=== PATIENT | male | born 1940 | race Caucasian/White ===

== ENCOUNTER 2019-09-20 09:32 | Inpatient (IN) ==
[2019-09-20] MEDS ORDERED: ASPIRIN PO ONE (09:51)
--- NOTE | 2019-09-20 10:08 | Diag Imaging Result Doc PS360 ---
EXAM: CHEST-2 VIEWS 09/20/2019 HISTORY: chest pain TECHNIQUE: PA and lateral chest COMMENT: There are ill-defined opacities in both lung bases which are worse than on 09/08/2019. There is mild cardiomegaly. IMPRESSION: Bibasilar pneumonia versus pulmonary edema. Electronically signed by Joo Walton 09/20/2019 10:06 AM
--- NOTE | 2019-09-20 10:24 | EKG Report ---
Test Performed on : 09/20/2019 09:41:12 AM Test Reason : chest pain Blood Pressure : / mmHG Vent. Rate : 069 BPM Atrial Rate : 069 BPM P-R Int : 162 ms QRS Dur : 096 ms QT Int : 448 ms P-R-T Axes : 047 014 055 degrees QTc Int : 480 ms Sinus rhythm. with premature supraventricular complexes. Nonspecific ST abnormality Prolonged QT Abnormal ECG When compared with ECG of 17-SEP-2019 12:21, (Unconfirmed) premature supraventricular complexes. are now present Unconfirmed Result
[2019-09-20 10:37] LABS: BASO# 0.01 X1000 (0.0-0.2); BASO% 0.1 % (0.0-0.8); EOS# 0.02 X1000 (0.0-0.7); EOS% 0.2 % (0.0-10.0); HEMATOCRIT 48.9 % (42.0-52.0); HEMOGLOBIN 16.5 g/dL (14.0-18.0); LYMPH# 0.95 X1000 (1.2-3.4); LYMPH% 8.9 % (20.5-51.1); MCH 31.8 PG (27-31); MCHC 33.7 g/dL (33-37); MCV 94.2 FL (81-99); MONO# 1.24 X1000 (0.11-0.59); MONO% 11.6 % (1.7-9.3); MPV 12.2 FL (7.4-10.4); NEUT# 8.47 X1000 (1.4-6.5); NEUT% 79.2 % (42.2-75.2); PLT 122 X1000 (130-400); RBC 5.19 XMIL (4.7-6.1); RDW 12.8 % (11.5-14.5); WBC 10.69 X1000 (4.8-10.8)
[2019-09-20 10:41] LABS: ALB/GLOB RATIO 1.7; ALBUMIN 4.1 g/dL (3.5-5.0); CALCIUM 9.5 mg/dL (8.8-10.2); CREATININE 1.2 mg/dL (0.7-1.2); POTASSIUM 4.5 mmol/L (3.5-5.1); TOTAL BILIRUBIN 4.58 mg/dL (0.20-1.00); TOTAL PROTEIN 6.5 g/dL (6.3-8.3)
[2019-09-20 11:06] LABS: INR 1.51; PROTIME 18.5 Seconds (11.0-16.0); PTT 33.6 Seconds (22.3-41.8)
[2019-09-20] MEDS ORDERED: LASIX IV ONE (12:58)
--- NOTE | 2019-09-20 12:59 | PROVIDER DOCUMENTATION ---
HPI-Chest Pain - General Chief Complaint: Chest Pain Stated Complaint: CP Time Seen by Provider: 09/20/19 12:40 Source: patient, family Allergies/Adverse Reactions: Patient Allergies Allergy/AdvReac Type Severity Reaction Status Date / Time Sulfa (Sulfonamide Allergy HIVES Verified 09/20/19 14:04 Antibiotics) Home Medications: Home Medication List Medication Instructions Recorded Confirmed Last Taken Type RX: Metformin [Glucophage] 500 mg PO BID 02/28/17 09/20/19 09/19/19 History RX: Tamsulosin [Flomax] 0.4 mg PO BID 03/05/17 09/20/19 09/19/19 History Metoprolol [Lopressor] 50 mg PO BID #60 tab 09/03/17 09/20/19 09/20/19 Rx RX: Apixaban [Eliquis] 5 mg PO BID #60 tab 09/03/17 09/20/19 09/20/19 Rx Amiodarone [Cordarone] 2 tab PO DAILY 09/15/19 09/20/19 09/20/19 History Cinnamon Bark [Cinnamon] 500 mg PO DAILY 09/15/19 09/20/19 09/19/19 History - History of Present Illness-CP Nature of Presenting Problem: Patient is an 79 yo M with PMH of paroxysmal aFib, HTN, DM, who presents to the ED c/o cp, sob, fatigue and wheezing, his symptoms started 3 days ago. Location: reports: substernal Chest Pain Radiation: reports: no radiation Quality of Pain: reports: pressure Severity in ED: moderate Onset/Duration: gradual Timing: still present Context/Activities at Onset: reports: rest Modifying Factors: improves with: rest. worse with: movement Associated Symptoms: reports: dizziness, fatigue, shortness of breath Aspirin Treatment Today: no aspirin today Similar Symptoms Previously?: Yes Review of Systems - Adult - REVIEW OF SYSTEMS - ADULT Constitutional: reports: fatique Eyes: reports: no symptoms reported Ears, Nose, Mouth & Throat: reports: no symptoms reported Cardiovascular: reports: see HPI Respiratory: reports: see HPI Gastrointestinal: reports: no symptoms reported Genitourinary: reports: no symptoms reported Musculoskeletal: reports: no symptoms reported Integumentary: reports: no symptoms reported Allergic/Immunologic: reports: no symptoms reported All Other Systems: Reviewed and Negative Past History - Adult - PAST MEDICAL HISTORY-ADULT Review of Records: reports: Nursing Assessment Review, Medications Reviewed, Social history reviewed & non-contributory. Major Childhood Illnesses: reports: denies history Cardiovascular: reports: A-Fib, HTN Respiratory: reports: denies history Gastrointestinal: reports: denies history Obstetrical/Gynecological: reports: denies history Genitourinary: reports: kidney stones Musculoskeletal: reports: denies history Neurological: reports: denies history Endocrine/Immune: reports: Diabetes Diabetes Type: Type 2 Other Conditions: reports: denies history - IMMUNIZATION STATUS Childhood Immunizations: See Nurse Assessment Flu Vaccine: See Nurse Assessment - FAMILY HISTORY Family History: reviewed, not pertinent - SOCIAL HISTORY Smoking: denies Substance Use: none/never Living Situation: family Physical Exam-General - PHYSICAL EXAM-ADULT Initial Vital Signs Reviewed: Yes - CONSTITUTIONAL General Appearance: no apparent distress - EYES Eyes: PERRL/EOMI - HEAD, EARS, NOSE, MOUTH & THROAT HENMT: normocephalic/atraumatic, moist mucous membranes - NECK Neck: non-tender, full range of motion - RESPIRATORY Respiratory: chest non-tender, crackles (Bibasilar) - CARDIOVASCULAR Cardiovascular: normal peripheral pulses, regular rate, rhythm. negative: JVD (+2 bilateral pitting edema) - GASTROINTESTINAL (ABDOMEN) Abdominal Exam: normal bowel sounds, non tender, soft - LYMPHATIC Lymphatic: no adenopathy - SKIN Integumentary: warm/dry - NEUROLOGIC Neurologic: grossly normal - PSYCHIATRIC Psych/Mental Status: oriented x 3 - HEART Score HEART Score: History: Highly Suspicious HEART Score: ECG: Non-Specific Repolarization Disturbance/LBBB/PM HEART Score: Age: > or = 65 Years HEART Score: Risk Factors for Atherosclerotic Disease: > or = 3 Risk Factors or History of Atherosclerotic Disease HEART Score: Troponin: 1-3x Normal Limit (High risk) Total HEART Score:: 8 Progress - PLAN OF CARE/RESULTS Progress/Plan/Lab Results: Vital Signs - 8 hr 09/20/19 14:32 09/20/19 16:02 Temperature 98.1 F Pulse Rate 61 66 Respiratory Rate 16 30 H Blood Pressure 118/85 O2 Sat by Pulse Oximetry 93 L 100 Laboratory Results - last 24 hr 09/20/19 09/20/19 09/20/19 09:56 09:56 09:56 WBC 10.69 RBC 5.19 Hgb 16.5 Hct 48.9 MCV 94.2 MCH 31.8 H MCHC 33.7 RDW Std Deviation 12.8 Plt Count 122 L MPV 12.2 H Neut % (Auto) 79.2 H Lymph % (Auto) 8.9 L Teller % (Auto) 11.6 H Eos % (Auto) 0.2 Baso % (Auto) 0.1 Neut # (Auto) 8.47 H Lymph # (Auto) 0.95 L Teller # (Auto) 1.24 H Eos # (Auto) 0.02 Baso # (Auto) 0.01 PT INR PTT (Actin FS) Sodium 134 L Potassium 4.5 Chloride 97 L Carbon Dioxide 21 L Anion Gap 16 BUN 23 H Creatinine 1.2 Estimated GFR/1.73 m2 58 BUN/Creatinine Ratio 19 Glucose 274 H Calculated Osmolality 282 Calcium 9.5 Total Bilirubin 4.58 H AST 22 ALT 22 Alkaline Phosphatase 94 Creatine Kinase 47 Troponin T High Sens Ard-A-Zyyodecqbwl Pept 2329 H Total Protein 6.5 Albumin 4.1 Globulin 2.4 Albumin/Globulin Ratio 1.7 09/20/19 09/20/19 09/20/19 09:56 09:56 14:43 WBC RBC Hgb Hct MCV MCH MCHC RDW Std Deviation Plt Count MPV Neut % (Auto) Lymph % (Auto) Teller % (Auto) Eos % (Auto) Baso % (Auto) Neut # (Auto) Lymph # (Auto) Teller # (Auto) Eos # (Auto) Baso # (Auto) PT 18.5 H INR 1.51 PTT (Actin FS) 33.6 Sodium Potassium Chloride Carbon Dioxide Anion Gap BUN Creatinine Estimated GFR/1.73 m2 BUN/Creatinine Ratio Glucose Calculated Osmolality Calcium Total Bilirubin AST ALT Alkaline Phosphatase Creatine Kinase Troponin T High Sens 20 H 20 H Rvd-C-Dnazewljcyw Pept Total Protein Albumin Globulin Albumin/Globulin Ratio Orders Category Date Time Status Admit - [facility] Routine AdmDCTranf 09/20/19 16:51 Active Activity - Up with Assistance ORDERED Care 09/20/19 16:51 Active Cardiac Monitoring DIRECTED Care 09/20/19 09:52 Active FSBS/Accucheck Result AC + HS Care 09/20/19 16:51 Active Intake and Output-Strict ORDERED Care 09/20/19 18:19 Active Nursing- MD Consult Request ROUTINE Care 09/20/19 16:51 Active Oxygen Therapy- ED Nursing DIRECTED Care 09/20/19 09:52 Completed Oxygen Therapy- ED Nursing DIRECTED Care 09/20/19 15:21 Completed Saline Loc NOW Care 09/20/19 09:52 Active Vital Signs Order Q 8-HR ASSESS Care 09/20/19 18:19 Active Z-Document. for Tele Applied ORDERED Care 09/20/19 18:19 Active Physician/Provider Consults Routine Cons 09/20/19 16:51 Ordered Diabetic Diet Diet 09/20/19 16:52 Active CHEST-2 VIEWS [RAD] Stat Exams 09/20/19 09:52 Completed A1C HGB W EST AVG GLUCOSE [CHEM] Routine Lab 09/21/19 06:00 Ordered CBC WITH DIFF [HEME] Routine Lab 09/21/19 06:00 Uncollected CBC WITH ELECTRONIC DIFF [HEME] Stat Lab 09/20/19 09:56 Completed CK PROFILE [SP CHEM] Stat Lab 09/20/19 09:56 Completed COMPREHENSIVE METABOLIC PANEL [CHEM] Routine Lab 09/21/19 06:00 Uncollected COMPREHENSIVE METABOLIC PANEL [CHEM] Stat Lab 09/20/19 09:56 Completed PRO B-NATRIURETIC PEPTIDE Stat Lab 09/20/19 09:56 Completed PROTIME WITH INR [COAG] Stat Lab 09/20/19 09:56 Completed PTT [COAG] Stat Lab 09/20/19 09:56 Completed TROPONIN T HIGH SENSITIVITY Q4H Lab 09/20/19 17:36 Completed TROPONIN T HIGH SENSITIVITY Q4H Lab 09/20/19 22:03 Received TROPONIN T HIGH SENSITIVITY Stat Lab 09/20/19 09:56 Completed TROPONIN T HIGH SENSITIVITY Stat Lab 09/20/19 14:43 Completed TSH Routine Lab 09/21/19 06:00 Uncollected Acetaminophen [Tylenol] Med 09/20/19 16:51 Active 650 mg PO Q6H PRN PRN Albuterol 2.5MG/Ipratrop 0.5MG [Duoneb (A & A)] Med 09/20/19 15:23 Discontinued 3 ml INH NOW ONE Albuterol 2.5MG/Ipratrop 0.5MG [Duoneb (A & A)] Med 09/20/19 16:51 Active 3 ml INH Q2H PRN PRN Amiodarone [Cordarone] Med 09/21/19 09:00 Active 400 mg PO DAILY Apixaban [Eliquis] Med 09/20/19 21:00 Active 5 mg PO BID Aspirin Med 09/20/19 09:51 Discontinued 325 mg PO NOW ONE Furosemide [Lasix] Med 09/20/19 12:58 Discontinued 40 mg IV NOW ONE Furosemide [Lasix] Med 09/21/19 02:00 Active 40 mg IV Q12H Insulin Human Regular [Humulin R] Med 09/20/19 21:00 Active See Protocol SUBQ 0700,1100,1600,2100 Metformin [Glucophage] Med 09/20/19 21:00 Active 500 mg PO BID Metoprolol [Lopressor] Med 09/20/19 21:00 Active 50 mg PO BID Ondansetron [Zofran] Med 09/20/19 16:51 Active 4 mg IV Q4H PRN PRN Patient's Own Med Med 09/21/19 09:00 Active 1 each PO DAILY Tamsulosin [Flomax] Med 09/20/19 21:00 Active 0.4 mg PO BID Aerosol Treatments Routine Oth 09/20/19 15:23 Completed Aerosol Treatments Routine Oth 09/20/19 16:51 Active Aerosol Treatments Stat Oth 09/20/19 15:23 Completed Aerosol Treatments Stat Oth 09/20/19 16:51 Active Telemetry [OM.EQ] Routine Oth 09/20/19 18:19 Active EKG [EKG] Stat Ther 09/20/19 09:52 Draft EKG [EKG] Stat Ther 09/20/19 12:58 Ordered Transfer/Admit Order [TRANSFER] Routine Transfer 09/20/19 16:16 Completed Result Diagrams: 09/20/19 09:56 09/20/19 09:56 - XRAY 1 XRAY: Bilateral XRAY Study: Chest Impression: See EMR Report (EXAM: CHEST-2 VIEWS 09/20/2019 HISTORY: chest pain TECHNIQUE: PA and lateral chest COMMENT: There are ill-defined opacities in both lung bases which are worse than on 09/08/2019. There is mild cardiomegaly. IMPRESSION: Bibasilar pneumonia versus pulmonary edema. Electronically signed by Joo Walton 09/20/2019 10:06 AM 09/20/19 1006 Interpreting Physician: Joo Walton MD Dictated Date/Time: 09/20/19 1006) - CONSULTS/PCP/HOSPITALIST Notification #1 *Consult/PCP/Hospitalist*: FURRIER DESIGNER Parisa Time Discussed: 15:20 Consult Disposition: Admit Departure - Departure Date of Disposition Decision: 09/20/19 Time of Disposition Decision: 15:26 DIAGNOSIS: Elevated troponin, Thrombocytopenia, LFTs abnormal Pulmonary edema Qualifiers: Chronicity: acute Qualified Code(s): J81.0 - Acute pulmonary edema Acute CHF (congestive heart failure) Qualifiers: Heart failure type: unspecified Qualified Code(s): I50.9 - Heart failure, u nspecified Disposition: ADMITTED INPATIENT 09 Certified Medical Emergency: Emergent Condition: Stable - Critical Care Note This patient required my direct & personal management of CC.: No Attestation - Physician/ ADIEL Attestation Patient care was provided by Advanced Practice Provider:: No The physician spent face to face time with patient:: Yes Advanced Practice Provider documentation review:: Supervising physician onsite and consulted in the evaluation and care of this patient. The physician did have a face to face encounter with the patient.
[2019-09-20] MEDS ORDERED: DUONEB (A & A) INH ONE (15:23)
[2019-09-20] MEDS ORDERED: DUONEB (A & A) INH PRN (16:51)
[2019-09-20] MEDS ORDERED: ZOFRAN IV PRN (16:51)
--- NOTE | 2019-09-20 18:10 | HISTORY AND PHYSICAL ---
CHIEF COMPLAINT: Shortness of breath. HISTORY OF PRESENT ILLNESS: This is an 79-year-old gentleman with atrial fibrillation who just was cardioverted not too long ago, presenting with chest pain and shortness of breath. His chief complaint was really mostly chest pain. He describes it as a heaviness under his left breast, radiates kind of across his diaphragm or across his chest. Nothing really makes it better or worse including medication. It just was persistent and he was concerned enough he came in for evaluation. It has been going on and off though for the last 3 to 4 days. Workup in the ER revealed what looks like a CHF exacerbation, elevated proBNP, chest x-ray with interstitial infiltrates mostly in the dependent portions of the lung and we will continue treatment. He also has an insufficient aortic valve which he has follow up next week with Dr. Mason for, I am assuming, evaluation of possible TAVR. In any case, the patient will be admitted, placed on IV diuretics. EXAM: Lungs: His lung sounds do have crackles at the bases. GI: Soft, nontender, nondistended. Bowel sounds are positive. This is a [id number] encounter note with Parisa Masters. cc: Juan Minaya MD
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
[2019-09-20] MEDS: FLOMAX PO SCH (20:36)
[2019-09-20] MEDS: LOPRESSOR PO SCH (20:36)
[2019-09-20] MEDS: GLUCOPHAGE PO SCH (20:36)
[2019-09-20] MEDS: ELIQUIS PO SCH (20:36)
[2019-09-20] MEDS: HUMULIN R SUBQ SCH (21:38)
[2019-09-21] MEDS: LASIX IV SCH ×2 (01:29→14:04)
[2019-09-21] MEDS: TYLENOL PO PRN ×2 (05:16→22:17)
[2019-09-21] MEDS: HUMULIN R SUBQ SCH ×4 (06:21→22:17)
[2019-09-21 07:47] LABS: BASO# 0.02 X1000 (0.0-0.2); BASO% 0.2 % (0.0-0.8); EOS# 0.01 X1000 (0.0-0.7); EOS% 0.1 % (0.0-10.0); HEMATOCRIT 42.2 % (42.0-52.0); HEMOGLOBIN 14.1 g/dL (14.0-18.0); IMM GRAN# 0.03 X1000 (0.0-0.04); IMM GRAN% 0.3 % (0.0-0.5); LYMPH% 9.6 % (20.5-51.1); MCH 31.2 PG (27-31); MCHC 33.4 g/dL (33-37); MCV 93.4 FL (81-99); MONO# 1.28 X1000 (0.11-0.59); MONO% 12.3 % (1.7-9.3); MPV 11.9 FL (7.4-10.4); NEUT# 8.06 X1000 (1.4-6.5); NEUT% 77.5 % (42.2-75.2); PLT 112 X1000 (130-400); RBC 4.52 XMIL (4.7-6.1); RDW 12.4 % (11.5-14.5)
[2019-09-21 08:05] LABS: HEMOGLOBIN A1C 8.9 % (4.8-6.0)
[2019-09-21 08:40] LABS: AGAP 15; ALBUMIN 3.1 g/dL (3.5-5.0); ALKALINE PHOSPHATASE 76 U/L (32-122); BUN 21 mg/dL (8-22); CALCIUM 8.7 mg/dL (8.8-10.2); CHLORIDE 99 mmol/L (98-107); COSMO 285; ESTIMATED GFR > 60; GLUCOSE 212 mg/dL (70-104); GOT 18 U/L (10-34); GPT 17 U/L (10-44); POTASSIUM 3.5 mmol/L (3.5-5.1); SODIUM 138 mmol/L (136-145); TCO2 24 mmol/L (25-35); TOTAL BILIRUBIN 4.48 mg/dL (0.20-1.00); TOTAL PROTEIN 6.1 g/dL (6.3-8.3)
[2019-09-21] MEDS: LOPRESSOR PO SCH ×2 (09:34→22:17)
[2019-09-21] MEDS: FLOMAX PO SCH ×2 (09:34→22:17)
[2019-09-21] MEDS: ELIQUIS PO SCH ×2 (09:34→22:17)
[2019-09-21] MEDS: GLUCOPHAGE PO SCH ×2 (09:34→22:17)
[2019-09-21] MEDS: PATIENT'S OWN MED PO SCH (09:34)
[2019-09-21] MEDS: CORDARONE PO SCH (09:34)
--- NOTE | 2019-09-21 15:05 | PROGRESS NOTE ---
DATE: 09/21/2019 SUBJECTIVE: The patient reports breathing better. Upon my examination, not requiring any oxygen supplementation. OBJECTIVE: Vital Signs: Temperature 98 degrees, heart rate 66, respiratory rate 20, blood pressure 126/56, O2 saturation 97% on room air. General: This is an 79-year-old, male, lying in bed in no acute distress. Cardiovascular: S1, S2 heard. No murmurs, gallops, or rubs. Regular rate and rhythm. Respiratory: Clear bilaterally to auscultation. No work of breathing or using accessory muscles. Abdomen: Soft. Nontender to palpation. Bowel sounds present. No organomegaly. Extremities: No clubbing, cyanosis, or edema. Peripheral pulses present in both legs. Neurological: The patient is alert and oriented x3. Moves all 4 extremities. LABORATORY DATA: Reviewed, and BMP is normal, except glucose 212. Bilirubin is 4.48. ASSESSMENT AND PLAN: 1. Acute congestive heart failure, systolic versus diastolic. The patient is receiving Lasix 80 mg intravenously every 12 hours. At home, he is not on any Lasix. He is responding to this medication, so at this point, will continue with the same management. 2. Hyperbilirubinemia, most likely related from right-sided heart failure. Will continue to repeat CMP daily. 3. History of atrial fibrillation, status post cardioversion, now in sinus rhythm. Will continue with Eliquis and beta guera. 4. Diabetes mellitus type 2. Will continue with sliding scale insulin and Accu-Chek before meals and also at bedtime. 5. Benign prostatic hypertrophy. Will continue with tamsulosin. 6. Deep vein thrombosis prophylaxis. The patient is already on Eliquis. 7. Disposition. At this point, I am going to check an x-ray tomorrow, and if that is okay, will discharge this patient with Lasix, with a followup with his primary secondary school special ed teacher in 4 weeks. cc: Gopal Coronado MD
[2019-09-22] MEDS: LASIX IV SCH (02:00)
[2019-09-22] MEDS: HUMULIN R SUBQ SCH ×2 (06:05→12:21)
[2019-09-22 07:46] LABS: RDW 12.4 % (11.5-14.5)
--- NOTE | 2019-09-22 07:51 | Diag Imaging Result Doc PS360 ---
CHEST-2 VIEWS - 09/22/2019 INDICATION: pulmonary edema COMPARISON: 09/20/2019 FINDINGS: There has been some improvement in the hazy bibasilar infiltrates. Stable cardiomegaly. Pulmonary vascularity remains top normal. No pneumothorax or significant pleural effusion. IMPRESSION: Improvement in the hazy bibasilar infiltrates. Electronically signed by Jorgito Rand 09/22/2019 7:49 AM
[2019-09-22] MEDS: ELIQUIS PO SCH (08:21)
[2019-09-22] MEDS: FLOMAX PO SCH (08:21)
[2019-09-22] MEDS: CORDARONE PO SCH (08:21)
[2019-09-22] MEDS: LOPRESSOR PO SCH (08:21)
[2019-09-22] MEDS: GLUCOPHAGE PO SCH (08:21)
[2019-09-22] MEDS: PATIENT'S OWN MED PO SCH (08:22)
[2019-09-22 08:25] LABS: AGAP 14; ALB/GLOB RATIO 0.9; ALBUMIN 2.9 g/dL (3.5-5.0); ALKALINE PHOSPHATASE 82 U/L (32-122); BUN 21 mg/dL (8-22); CALCIUM 8.5 mg/dL (8.8-10.2); CHLORIDE 96 mmol/L (98-107); COSMO 284; CREATININE 1.1 mg/dL (0.7-1.2); ESTIMATED GFR > 60; GLUCOSE 155 mg/dL (70-104); GOT 16 U/L (10-34); GPT 15 U/L (10-44); POTASSIUM 3.3 mmol/L (3.5-5.1); SODIUM 139 mmol/L (136-145); TCO2 29 mmol/L (25-35); TOTAL BILIRUBIN 3.88 mg/dL (0.20-1.00); TOTAL PROTEIN 6.1 g/dL (6.3-8.3)
[2019-09-22 10:08] LABS: BASO# 0.04 X1000 (0.0-0.2); BASO% 0.5 % (0.0-0.8); EOS% 1.2 % (0.0-10.0); HEMATOCRIT 43.9 % (42.0-52.0); HEMOGLOBIN 14.7 g/dL (14.0-18.0); IMM GRAN# 0.03 X1000 (0.0-0.04); IMM GRAN% 0.4 % (0.0-0.5); LYMPH# 1.31 X1000 (1.2-3.4); LYMPH% 15.5 % (20.5-51.1); MCH 31.1 PG (27-31); MCHC 33.5 g/dL (33-37); MCV 92.8 FL (81-99); MONO# 0.93 X1000 (0.11-0.59); MPV 12.6 FL (7.4-10.4); NEUT# 6.05 X1000 (1.4-6.5); NEUT% 71.4 % (42.2-75.2); PLT 125 X1000 (130-400); RBC 4.73 XMIL (4.7-6.1); WBC 8.46 X1000 (4.8-10.8)
[2019-09-22 11:18] VITALS: BP 121/61
--- NOTE | 2019-09-22 17:31 | DISCHARGE SUMMARY ---
ADMISSION DATE: 09/20/2019 DISCHARGE DATE: 09/22/2019 DISCHARGE DIAGNOSES: 1. Acute congestive heart failure. 2. History of atrial fibrillation, currently sinus rhythm status post cardioversion. 3. Diabetes mellitus type 2. 4. Benign prostatic hypertrophy. 5. Aortic insufficiency. 6. Hyperbilirubinemia, most likely related right-sided heart failure. CONSULTATIONS: 1. None. PROCEDURES: 1. Chest x-ray done on admission showed bibasilar pneumonia versus pulmonary edema. 2. Chest x-ray done on the day of discharge showed improvement in the hazy bibasilar infiltrates. HOSPITAL COURSE: This is an 79-year-old male with a past medical history of atrial fibrillation, recently cardioverted, currently on Eliquis. He also has a history of aortic insufficiency that he is going to have a possible intervention for next month. Patient reports that he started feeling short of breath in July but got worse after cardioversion a few days ago. He noticed lower extremity swelling, shortness of breath, and wheezing as well. No fever or chills. Not able to sleep flat. Imaging revealed pulmonary edema with elevated proBNP, so he was admitted to the hospital. He was started on Lasix 40 mg IV q.12 hours. After 2 days he was feeling completely fine. Not requiring any oxygen supplementation. X-ray shows good improvement in those infiltrates. So, patient is going to be discharged in stable condition. We are going to start Lasix on this patient. DISCHARGE PHYSICAL EXAMINATION: Vital signs: Temperature 98.1 degrees, heart rate 64, respiratory rate 24, blood pressure 121/61, O2 saturation 95% on room air. General Examination: This is an 79-year-old male, lying in bed, in no acute distress. Cardiovascular: S1, S2 heard. No murmurs, gallops, or rubs. Regular rate and rhythm. Respiratory: Clear bilaterally to auscultation. No work of breathing or using accessory muscles. Abdomen: Soft. Nontender to palpation. Bowel sounds present. No organomegaly. Extremities: There is 1+ pitting edema in both lower extremities. Peripheral pulses present in both legs. Neurological: The patient is alert and oriented x3. Moves 4 extremities. DISCHARGE DISPOSITION: Home to self-care. DISCHARGE MEDICATIONS: 1. Lasix 20 mg 1 tablet p.o. daily. 2. Metformin 500 mg 1 tablet p.o. twice daily. 3. Tamsulosin 0.4 mg 1 tablet p.o. twice daily. 4. Eliquis 5 mg 1 tablet p.o. b.i.d. 5. Metoprolol 50 mg 1 tablet p.o. b.i.d. 6. Amiodarone 400 mg 1 tablet p.o. daily. FOLLOW UP: Follow up with his primary globe mounter at [facility], Dr. Alex, September 28, 2019. TIME SPENT: Time discharging this patient, 33 minutes. cc: Gopal Coronado MD
== END 2019-09-22 14:21 | disposition home or self-care (01) | DRG 293 ==
LOC: ED 09:32 → SUATTDRO 16:30 → EDIPHOLD 16:30 → 3N 18:01
PROVIDERS: ATTEND Internal Medicine